=== PATIENT | female | born 1995 | race Caucasian/White ===

== ENCOUNTER 2017-11-16 09:57 | Day surgery (SDC) | payer BC ==
[2017-11-15 12:13] VITALS: BMI 28.8
[2017-11-16] MEDS ORDERED: Fentanyl 100 MCG/2 ML VIAL ONE (11:31)
[2017-11-16] MEDS ORDERED: Midazolam HCl 2 mg/2 ml Vial ONE ×2 (11:31)
[2017-11-16] MEDS ORDERED: HYDROmorphone 0.5 MG/0.5 ML SYRINGE ONE (11:32)
[2017-11-16] MEDS ORDERED: Hydrocodone-Acetamin 15 ML UDCUP ONE (13:26)
[2017-11-16] MEDS ORDERED: Lidocaine 1% PF 5 ML VIAL ONE (14:37)
[2017-11-16] MEDS ORDERED: Ketorolac Tromethamine 30 MG/ML VIAL ONE (14:37)
[2017-11-16] MEDS ORDERED: Ondansetron HCl/PF 4 MG/2 ML Vial ONE (14:37)
[2017-11-16] MEDS ORDERED: PROPOFOL 200 MG/20 ML VIAL ONE (14:37)
--- NOTE | 2017-11-17 09:26 | OP ---
PREOPERATIVE DIAGNOSES: 1. Chronic adenotonsillitis. 2. Adenotonsillar hypertrophy. POSTOPERATIVE DIAGNOSES: 1. Chronic adenotonsillitis. 2. Adenotonsillar hypertrophy. PROCEDURES: Tonsillectomy and adenoidectomy. SURGEON: Michel Mckinney MD ESTIMATED BLOOD LOSS: 0 mL. COMPLICATIONS: None. ANESTHESIA: GETA. PROCEDURE IN DETAIL: After consent was obtained, the patient was identified, brought to the operatin g room, and placed on the operating table in the supine position. General endotracheal anesthesia an d intravenous access was obtained and we proceeded with positioning the patient for oropharyngeal nathaniel katherine. Oropharyngeal exposure was obtained with a Aric-Juan mouth gag after a head drape was placed and secured with a towel clip. The Aric-Juan mouth gag was then suspended from the Castaneda tray and palatal elevation was achieved with a red rubber catheter. The right tonsil was addressed first. We used a curved Allis to grasp the tonsil and retract it medially as an anterior pillar incision was m yuliet. The retrotonsillar fascial plane was then established and blunt dissection was performed with t he suction cautery. Blood vessels were anticipated, identified, and cauterized as they were encounte red. Ultimately, dissection was carried to the posterior tonsillar pillar mucosa which was incised h emostatically, as well as the base of tongue connection. The tonsil was then passed off as a specime n and bleeding points within the tonsillar bed were cauterized under direct visualization. We subseq uently turned our attention to the contralateral side, where using a similar technique, a near identi buffy procedure was performed. Again, the tonsil was grasped and retracted medially with a curved Blake s. The retrotonsillar fascial plane was established and while the anterior pillar was retracted medi ally, the hemostatic blunt dissection of the tonsil with a suction cautery was performed with blood v essels anticipated, identified, and cauterized as they were encountered. Again, dissection continued to the base of tongue and posterior tonsillar pillar mucosa which was incised in a hemostatic fashio n. The tonsillar beds were then carefully inspected and bleeding points were identified and cauteriz ed with a suction cautery. After this portion of the procedure, hemostasis was completely obtained. Under direct mirror visualization, we visualized the adenoid pad. Under direct mirror visualization , we removed the bulk of the adenoid tissue with the adenoid curette. We then packed the nasopharynx for an appropriate period of time with Markos-Synephrine saturated tonsillar sponges. After a period o f observation, we removed the pack. Under indirect mirror visualization, we obtained hemostasis and v aporization of residual adenoid tissue with electrocautery. The patient's oral cavity was copiously irrigated with iced saline and subsequently suctioned. After completion of the procedure, the nasal cavity and oropharynx were irrigated and suctioned as were the gastric contents. The patient was the n awakened and transferred to the recovery room where the patient remained in stable condition prior to discharge to Day Stay.
== END 2017-11-16 14:20 | disposition home or self-care (01) ==
LOC: SDC 09:57
PROVIDERS: ATTEND Otolaryngology Plastic Surgery within the Head & Neck
PROC: 0C5QXZZ Destruction of Adenoids, External Approach (ICD-10-PCS; principal; 2017-11-16)
PROC: 0C5PXZZ Destruction of Tonsils, External Approach (ICD-10-PCS; principal; 2017-11-16)
DX: J35.03 Chronic tonsillitis and adenoiditis (principal); N39.0 Urinary tract infection, site not specified; Z79.899 Other long term (current) drug therapy
CPT/HCPCS: 88304; J1170; J1885; J2001; J2250; J2405; J2704; J3010